=== PATIENT | female | born 1950 | race Caucasian/White ===

== ENCOUNTER 2017-09-05 18:02 | Emergency (ER) | payer MEDICARE, OTHER ==
[~2017-09-05] VITALS: Ht 162.6 cm; Wt 77.1 kg
[2017-09-05] MEDS ORDERED: BAYER CHEWABLE81 MG PO (18:14)
[2017-09-05] MEDS ORDERED: LISINOPRIL10 MG PO (18:14)
[2017-09-05] MEDS ORDERED: GLUCOPHAGE XR500 M1 PO (18:14)
[2017-09-05] MEDS ORDERED: TRICOR145 MG PO (18:15)
[2017-09-05] MEDS ORDERED: XALATAN2.5 ML OPHTHALMIC (18:15)
[2017-09-05] MEDS ORDERED: ADVAIR HFA 115-12 G1 INH (18:15)
[2017-09-05] MEDS ORDERED: SPIRIVA18 MCG INH (18:15)
[2017-09-05] MEDS ORDERED: ZOCOR20 MG PO (18:15)
[2017-09-05] MEDS ORDERED: FISH OIL 1,001000 M2 PO (18:16)
[2017-09-05] MEDS ORDERED: HYDROCHLOROTHIA25 M2 PO (18:16)
[2017-09-05] MEDS ORDERED: VITAMIN C500 M1 PO (18:16)
[2017-09-05] MEDS ORDERED: CALCIUM OYS SH1 EACH PO (18:17)
[2017-09-05] MEDS ORDERED: MAGNESIUM250 M1 PO (18:17)
[2017-09-05] MEDS ORDERED: FLONASE 0.05%50 MCG NASAL (18:17)
[2017-09-05] MEDS ORDERED: VITAMIN D31000 UNIT PO (18:17)
[2017-09-05] MEDS ORDERED: ZYRTEC10 M5 PO (18:18)
[2017-09-05] MEDS ORDERED: IPRAT-ALBUT 0.5-3 ML INH (18:18)
[2017-09-05 19:33] VITALS: BP 126/68
== END 2017-09-05 19:34 | disposition home or self-care (01) ==
LOC: M.ERS 18:02
DX: S61.217A Laceration without foreign body of left little finger without damage to nail, initial encounter (principal); E11.9 Type 2 diabetes mellitus without complications; E78.00 Pure hypercholesterolemia, unspecified; I10 Essential (primary) hypertension; J44.9 Chronic obstructive pulmonary disease, unspecified; Z90.710 Acquired absence of both cervix and uterus; Z90.49 Acquired absence of other specified parts of digestive tract; W26.0XXA Contact with knife, initial encounter; Y93.89 Activity, other specified; Y92.89 Other specified places as the place of occurrence of the external cause; Y99.8 Other external cause status